=== PATIENT | female | born 1940 | race Caucasian/White ===

== ENCOUNTER 2017-07-16 14:03 | Emergency (ER) | payer OTHER ==
[~2017-07-16] VITALS: Ht 162.6 cm; Wt 59.4 kg
[~2017-07-16 14:03] MED LIST: ASPIRIN E.C.81 M1 PO; ASPIRIN81 M2 PO; ATORVASTATIN CA40 MG PO; BACTRIM,SEPT1 TABLET PO; CEFTIN500 MG PO; CENTRUM SILVER1 EAC3 PO; CETIRIZINE HCL10 M1 PO; CETIRIZINE HCL10 M2 PO; Calan SR,Covera HS,I PO; DOXYCYCLINE HY100 M1 PO; LO-DOSE ASPIRIN81 M1 PO; MECLIZINE HCL25 MG PO; METAMUCIL FIBE3.4 GM PO; METAMUCIL PACKE1 PKT PO; NEXIUM40 MG PO; OMEPRAZOLE40 M1 PO; PAIN & FEVER500 MG PO; PERCOCET 5/31 TABLET PO; PRAVACHOL40 MG PO; PRAVASTATIN SOD40 MG PO; PREDNISONE10 MG PO; PROMETHAZI6.25 MG/5 PO; PROTONIX40 MG PO; Proventil,Ventolin H IH; SIMVASTATIN20 MG PO; TYLENOL EXTRA500 MG PO; VENTOLIN HFA18 GM IH; VERAPAMIL HCL240 MG PO; VERELAN 240 MG240 MG PO; ZITHROMAX500 M3 PO; ZITHROMAX500 MG PO; ZONATUSS150 MG PO; ZYRTEC10 M2 PO; Zocor PO
[2017-07-16 14:37] LABS: EOSINOPHIL (%) 3.4 % (0-5); EOSINOPHIL COUNT 0.2 K/uL (0-0.3); HEMATOCRIT 39.3 % (36.0-46.0); IMMATURE GRANULOCYTE (%) 0.3 % (0.0-0.7); INSTRUMENT ABS NEUTROPHIL CT 4.5 K/uL; LYMPHOCYTE COUNT 1.6 K/uL (1.0-2.8); MCH 30.8 PG (29.0-34.0); MCHC 32.6 G/DL (30.0-36.0); MCV 94.5 FL (83-99); MEAN PLAT.VOLUME 11.1 uM^3 (9.5-12.4); MONOCYTE (%) 8.6 % (3-12); MONOCYTE COUNT 0.6 K/uL (0-0.8); NEUTROPHIL (%) 64.2 % (45-76); NEUTROPHIL COUNT 4.5 K/uL (1.8-6.4); PLATELET COUNT 259 K/uL (156-360); RBC DIS.WIDTH-CV 14.2 % (11.8-14.6); RBC DIS.WIDTH-SD 49.4 % (39-53); RED BLOOD COUNT 4.16 M/uL (3.80-5.20)
[2017-07-16 14:45] LABS: CHLORIDE 107 mEq/L (99-109); POTASSIUM 4.2 mEq/L (3.7-5.4)
[2017-07-16 14:46] LABS: SODIUM 141 mEq/L (136-147)
[2017-07-16 14:47] LABS: GLUCOSE 87 mg/dL (70-99)
[2017-07-16 14:49] LABS: ANION GAP 8 MEQ/L (2-14)
[2017-07-16 14:51] LABS: GFR ESTIMATE (CALCULATED) > 59 mL/min/
[2017-07-16 14:52] LABS: UREA NITROGEN (BUN) 15 mg/dL (9-23)
[2017-07-16 14:58] LABS: TROP-I INTERPRETATION NEGATIVE; TROPONIN-I < 0.01 ng/mL (0.0-0.30)
[2017-07-16] MEDS ORDERED: DOXYCYCLINE HY100 MG PO (16:15)
[2017-07-16 16:52] VITALS: BP 121/65
== END 2017-07-16 16:56 | disposition home or self-care (01) ==
LOC: EME 14:03
PROVIDERS: Emergency Medicine
DX: J44.1 Chronic obstructive pulmonary disease with (acute) exacerbation (principal); R09.81 Nasal congestion; I10 Essential (primary) hypertension; E78.5 Hyperlipidemia, unspecified; Z79.82 Long term (current) use of aspirin; F17.200 Nicotine dependence, unspecified, uncomplicated
CPT/HCPCS: 71010; 80048; 84484; 85025; 94640; 94640 76; 99281; 99284

== ENCOUNTER 2017-07-19 14:46 | Observation (INO) | payer OTHER ==
[~2017-07-19] VITALS: Ht 162.6 cm; Wt 61.7 kg
[~2017-07-19 14:46] MED LIST changes: +DOXYCYCLINE HY100 MG PO
[2017-07-19 16:00] LABS: HEMATOCRIT 39.3 % (36.0-46.0); MCH 31.1 PG (29.0-34.0); MCHC 32.3 G/DL (30.0-36.0); MCV 96.1 FL (83-99); MEAN PLAT.VOLUME 11.3 uM^3 (9.5-12.4); PLATELET COUNT 260 K/uL (156-360); RBC DIS.WIDTH-CV 14.2 % (11.8-14.6); RBC DIS.WIDTH-SD 50.4 % (39-53); RED BLOOD COUNT 4.09 M/uL (3.80-5.20)
[2017-07-19 16:13] LABS: CHLORIDE 109 mEq/L (99-109); POTASSIUM 3.7 mEq/L (3.7-5.4); SODIUM 142 mEq/L (136-147)
[2017-07-19 16:15] LABS: GLUCOSE 104 mg/dL (70-99)
[2017-07-19 16:17] LABS: ANION GAP 8 MEQ/L (2-14); TOTAL BILIRUBIN 0.4 mg/dL (0.0-1.0)
[2017-07-19 16:19] LABS: ALKALINE PHOSPHATASE 84 IU/L (3-129); GFR ESTIMATE (CALCULATED) 57 mL/min/
[2017-07-19 16:20] LABS: UREA NITROGEN (BUN) 15 mg/dL (9-23)
[2017-07-19 16:57] LABS: C DIFF TOXIN NEGATIVE (NEGATIVE)
[2017-07-19 16:58] LABS: PROBE CHECK PASS; SPECIMEN PROCESSING CONTROL PASS
[2017-07-19] MEDS ORDERED: AZITHROMYCIN500 M1 PO (18:35)
[2017-07-19 20:49] VITALS: BP 121/59
[2017-07-20 01:07] VITALS: BP 122/57
[2017-07-20 04:30] VITALS: BP 119/59
[2017-07-20 05:48] LABS: ANION GAP 6 MEQ/L (2-14); CHLORIDE 110 MEQ/L (99-109); GFR ESTIMATE (CALCULATED) > 59 mL/min/; GLUCOSE 81 mg/dL (70-99); POTASSIUM 4.3 MEQ/L (3.7-5.4); SAMPLE HEMOLYSIS CHECK 1; SAMPLE ICTERIC CHECK 0; SAMPLE LIPEMIA CHECK 0; SODIUM 140 MEQ/L (136-147); UREA NITROGEN (BUN) 9 mg/dL (9-23)
[2017-07-20 06:15] LABS: HEMATOCRIT 36.2 % (36.0-46.0); MCV 96.8 FL (83-99); RED BLOOD COUNT 3.74 M/uL (3.80-5.20); WHITE BLOOD COUNT 6.5 K/uL (4.1-10.2)
[2017-07-20 06:16] LABS: MCH 31.8 PG (29.0-34.0); MCHC 32.9 G/DL (30.0-36.0); NRBC (%) 0.5 /100 WBC (0-0); RBC DIS.WIDTH-CV 14.4 % (11.8-14.6); RBC DIS.WIDTH-SD 50.7 % (39-53)
[2017-07-20 06:19] LABS: EOSINOPHIL (%) 2.8 % (0-5); EOSINOPHIL COUNT 0.2 K/uL (0-0.3); IMMATURE GRANULOCYTE (%) 0.3 % (0.0-0.7); INSTRUMENT ABS NEUTROPHIL CT 4.4 K/uL; LYMPHOCYTE COUNT 1.4 K/uL (1.0-2.8); MONOCYTE (%) 8.1 % (3-12); MONOCYTE COUNT 0.5 K/uL (0-0.8); NEUTROPHIL (%) 66.6 % (45-76); NEUTROPHIL COUNT 4.4 K/uL (1.8-6.4); PLAT.SUFFICIENCY ADEQUATE; PLATELET COUNT 237 K/uL (156-360)
[2017-07-20 06:20] LABS: USER ID SLU
[2017-07-20 09:10] VITALS: BP 107/54
[2017-07-20 11:54] VITALS: BP 189/60
[2017-07-20] MEDS ORDERED: METRONIDAZOLE500 MG PO (15:05)
[2017-07-20] MEDS ORDERED: FLORASTOR250 MG PO (15:07)
[2017-07-20] MEDS ORDERED: CEFDINIR300 MG PO (15:08)
[2017-07-20 17:35] VITALS: BP 132/60
== END 2017-07-20 18:53 | disposition home or self-care (01) ==
LOC: EME 14:46 → EDOF 19:32 → 5WEST 19:32 → EDOF 19:32 → ENRESERV 19:33 → 5WEST 20:27
PROVIDERS: Emergency Medicine; Physician Assistant Medical
DX: K52.9 Noninfective gastroenteritis and colitis, unspecified (principal); K57.30 Diverticulosis of large intestine without perforation or abscess without bleeding; J44.9 Chronic obstructive pulmonary disease, unspecified; I10 Essential (primary) hypertension; E78.5 Hyperlipidemia, unspecified; K21.9 Gastro-esophageal reflux disease without esophagitis; I67.1 Cerebral aneurysm, nonruptured; F17.210 Nicotine dependence, cigarettes, uncomplicated; Z79.82 Long term (current) use of aspirin; Z88.0 Allergy status to penicillin; Z91.030 Bee allergy status; Z91.013 Allergy to seafood; Z88.8 Allergy status to other drugs, medicaments and biological substances
CPT/HCPCS: 74177; 80048; 80053; 85025; 85027; 87493; 94640; 94640 76; 94799; 99202; 99281; 99285; G0378; G8978 GP CH; G8979 GP CH; G8980 GP CH; G8987 GO CH; G8988 GO CH; G8989 GO CH; J0696; J1644; J2405; J7030; J7120; S0030

== ENCOUNTER → 2017-08-27 | Outpatient (CLI) | payer OTHER ==
[~2017-08-27] MED LIST changes: +AZITHROMYCIN500 M1 PO; +CEFDINIR300 MG PO; +FLORASTOR250 MG PO; +METRONIDAZOLE500 MG PO
== END | disposition home or self-care (01) ==
LOC: RAD 08:21
DX: K57.30 Diverticulosis of large intestine without perforation or abscess without bleeding (principal); Z90.710 Acquired absence of both cervix and uterus; R93.5 Abnormal findings on diagnostic imaging of other abdominal regions, including retroperitoneum
CPT/HCPCS: 74177

== ENCOUNTER 2017-10-05 13:38 | Emergency (ER) | payer OTHER ==
[~2017-10-05] VITALS: Ht 162.6 cm; Wt 56.8 kg
[2017-10-05] MEDS ORDERED: FLEXERIL10 MG PO (15:49)
[2017-10-05 16:02] VITALS: BP 137/83
== END 2017-10-05 16:10 | disposition home or self-care (01) ==
LOC: EME → EDBD 13:38 → EME 16:10
DX: S16.1XXA Strain of muscle, fascia and tendon at neck level, initial encounter (principal); M54.6 Pain in thoracic spine; V43.52XA Car driver injured in collision with other type car in traffic accident, initial encounter; Y92.410 Unspecified street and highway as the place of occurrence of the external cause; J44.9 Chronic obstructive pulmonary disease, unspecified; Z79.82 Long term (current) use of aspirin; F17.200 Nicotine dependence, unspecified, uncomplicated
CPT/HCPCS: 72125; 99281; 99284

== ENCOUNTER 2017-11-03 07:04 | Emergency (ER) | payer OTHER ==
[~2017-11-03] VITALS: Ht 154.9 cm; Wt 56.8 kg
[~2017-11-03 07:04] MED LIST changes: +FLEXERIL10 MG PO
[2017-11-03] MEDS ORDERED: PERCOCET 5/31 TABLET PO (07:52)
[2017-11-03 08:25] VITALS: BP 100/69
== END 2017-11-03 08:26 | disposition home or self-care (01) ==
LOC: EME 07:04
PROC: 2W3CX1Z Immobilization of Right Lower Arm using Splint (ICD-10-PCS; principal; 2017-11-03)
DX: S52.91XD Unspecified fracture of right forearm, subsequent encounter for closed fracture with routine healing (principal); X58.XXXD Exposure to other specified factors, subsequent encounter; Z46.89 Encounter for fitting and adjustment of other specified devices; M79.631 Pain in right forearm; J44.9 Chronic obstructive pulmonary disease, unspecified; Z79.82 Long term (current) use of aspirin; F17.200 Nicotine dependence, unspecified, uncomplicated
CPT/HCPCS: 99281; 99284

== ENCOUNTER → 2018-03-20 | Outpatient (CLI) | payer OTHER, MEDICARE | END | disposition home or self-care (01) | LOC: CDC 10:50 | DX: Z01.810 Encounter for preprocedural cardiovascular examination (principal) | CPT/HCPCS: 93000 ==